=== PATIENT | female | born 1985 | race Caucasian/White ===

== ENCOUNTER 2019-04-17 18:18 | Emergency (ER) | payer OTHER ==
[2019-04-17 18:55] VITALS: BP 134/88
--- NOTE | 2019-04-17 19:20 | UC ---
Headache HPI - HPI Summary HPI Summary: 33-year-old woman comes in with a chief complaint of right-sided headache right eye blurred vision and dizziness. These symptoms started a couple of hours ago. Headaches a 6 out of 10 on the right side of her head. The right eye vision feels blurred. She also has mild photophobia. When she moves her head or eyes she gets a spinning dizziness. No complaint of any upper respiratory tract infection symptoms. No complaint of ear pain. No history of migraines denies any change in speech or weakness or numbness. Patient does have chronic right shoulder pain which sometimes spreads to the right neck however she's never had right sided headache with blurred vision and dizziness. Not on oral control pill. - History Of Current Complaint Chief Complaint: UCDizziness Stated Complaint: SHOULDER, NECK AND HEAD PAIN WITH DIZZINESS Time Seen by Provider: 04/17/19 18:48 Hx Last Menstrual Period: IUD Pain Intensity: 5 - Allergies/Home Medications Allergies/Adverse Reactions: Allergies Allergy/AdvReac Type Severity Reaction Status Date / Time Sulfa (Sulfonamide Allergy Intermediate Rash Verified 04/17/19 18:42 Antibiotics) Home Medications: Home Medications Propranolol TAB* [Inderal TAB*] 1 tab PO DAILY 04/17/19 [History Confirmed 04/17] Sertraline* [Zoloft*] 1 tab PO DAILY 04/17/19 [History Confirmed 04/17/19] PMH/Surg Hx/FS Hx/Imm Hx Previously Healthy: Yes - Surgical History Surgical History: None - Family History Known Family History: Positive: Non-Contributory - Social History Alcohol Use: Rare Substance Use Type: None Smoking Status (MU): Never Smoked Tobacco Review of Systems All Other Systems Reviewed And Are Negative: Yes Constitutional: Positive: Other - SEE HPI Skin: Positive: Negative Eyes: Positive: Blurred Vision ENT: Positive: Negative Respiratory: Positive: Negative Cardiovascular: Positive: Negative Gastrointestinal: Positive: Negative Motor: Positive: Negative Neurovascular: Positive: Negative Musculoskeletal: Positive: Other: - SEE HPI Neurological: Positive: Headache Psychological: Positive: Negative Is Patient Immunocompromised?: No Physical Exam Triage Information Reviewed: Yes Appearance: Well-Appearing, Well-Nourished, Pain Distress - MILD Vital Signs: Initial Vital Signs Temp 98.7 F 04/17/19 18:48 Pulse 57 04/17/19 18:48 Resp 16 04/17/19 18:48 BP 134/88 04/17/19 18:48 Pulse Ox 100 04/17/19 18:48 Vital Signs Reviewed: Yes Eyes: Positive: Conjunctiva Clear, Other: - PERRLA EOMI. No nystagmus appreciated on exam. Eye movement does cause dizziness per patient. No visual field deficit. Patient reports right eye vision is blurred. ENT: Positive: TMs normal. Negative: Nasal drainage Neck: Positive: Supple Respiratory: Positive: Lungs clear, Normal breath sounds, No respiratory distress Cardiovascular: Positive: RRR Musculoskeletal: Positive: Strength Intact, ROM Intact Neurological: Positive: Alert, Muscle Tone Normal, Other: - There is no facial droop. Speech is mildly erratic. However the patient's partner states is the way she normally talks. Arms and legs have full range of motion full-strength. Psychological: Positive: Age Appropriate Behavior Skin Exam: Normal Diagnostics - EKG Cardiac Rate: Bradycardia - AT 1838 Cardiac Rhythm: Sinus: Normal - 45BPM Ectopy: None ST Segment: Normal Headache Course/Dx - Course Course Of Treatment: I discussed the EKG with the patient and her partner. 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 She reports that she's been told she hasn't athlete's heart in the past but is not specifically aware of a slow heart rate. This is a new onset headache with blurred vision dizziness and photophobia. To me the patient's speech was pattern somewhat irregularly however the patient and her partner said this is not different than normal. Because of the new onset headache with visual symptoms dizziness and potential speech changes I recommended further evaluation in the emergency department. Patient prefers go by POV. - Differential Dx/Diagnosis Provider Diagnosis: Right-sided headache, Blurred vision, right eye, Dizziness Discharge ED - Sign-Out/Discharge Documenting (check all that apply): Patient Departure All imaging exams completed and their final reports reviewed: No Studies - Discharge Plan Condition: Stable Disposition: HOME-RECOMMEND TO ED Referrals: [facility] [place] [facility] [Outside] Additional Instructions: GO DIRECTLY TO THE EMERGENCY DEPARTMENT FOR FURTHER EVALUATION OF YOUR RIGHT SIDED HEADACHE, BLURRED VISION AND DIZZINESS. - Billing Disposition and Condition Condition: STABLE Disposition: Home-Recommend to ED
== END 2019-04-17 19:23 | disposition home health service (06) ==
LOC: UCEAST 18:18
DX: R51 Headache (principal); H53.8 Other visual disturbances; R42 Dizziness and giddiness; R00.1 Bradycardia, unspecified; Z88.2 Allergy status to sulfonamides
CPT/HCPCS: 93005; 99202; G0463

== ENCOUNTER 2019-04-17 19:56 | Emergency (ER) | payer OTHER ==
[2019-04-17] MEDS: diPHENhydraMINE IV* 50 MG/ML 1 ml VIAL (BENADRYL) IV ONE (21:47)
[2019-04-17] MEDS: Ondansetron INJ* 2 MG/ML VIAL IV ONE (21:47)
[2019-04-17] MEDS: Ketorolac INJ* 30 MG/ML 1 ML VIAL IV PUSH ONE (21:47)
[2019-04-17 22:09] LABS: ABS Eosinophils 0.1 10^3/ul (0-0.6); ABS Lymphocytes 3.6 10^3/ul (1.0-4.8); ABS Monocytes 0.5 10^3/ul (0-0.8); ABS Neutrophils 5.6 10^3/ul (1.5-7.7); Eosinophil % 1.4 %; Hematocrit 42 % (35-47); Hemoglobin 13.8 g/dL (12.0-16.0); Lymphocyte % 36.4 %; Mean Corpuscular HGB Conc 33 g/dL (31-36); Mean Corpuscular Hemoglobin 29 pg (27-31); Mean Corpuscular Volume 89 fL (80-97); Nucleated Red Blood Cells % 0.1; Platelet Count 317 10^3/uL (150-450); Red Blood Count 4.75 10^6 /uL (3.70-4.87); Red Cell Distribution Width 13 % (10-15); White Blood Count 9.8 10^3/uL (3.5-10.8)
[2019-04-17 22:22] LABS: ALT 17 U/L (7-52); AST 18 U/L (13-39); Albumin 4.7 g/dL (3.2-5.2); Albumin/Globulin Ratio 1.7 (1-3); Alkaline Phosphatase 62 U/L (34-104); Anion Gap 9 mmol/L (2-11); BUN/Creatinine Ratio 14.3 (8-20); Blood Urea Nitrogen 11 mg/dL (6-24); C Reactive Protein 1.55 mg/L (<8.01); CO2 Carbon Dioxide 24 mmol/L (22-32); Calcium 9.3 mg/dL (8.6-10.3); Chloride 108 mmol/L (101-111); EGFR African American 105.1 (>60); EGFR Non-African American 86.9 (>60); Globulin 2.8 g/dL (2-4); Glucose 78 mg/dL (70-100); Potassium 3.4 mmol/L (3.5-5.0); Sodium 141 mmol/L (135-145); Total Protein 7.5 g/dL (6.4-8.9)
[2019-04-17 22:29] LABS: HCG Pregnancy < 0.60 mIU/mL
--- NOTE | 2019-04-17 23:06 | ED ---
Headache - HPI Summary HPI Summary: 33 year old female presents with headache today. States that headache started 3 hours ago. It is not the worst headache of her life. She felt with headache she's had some photophobia and dizzy. She has history of right shoulder issues that is not new. She admits to numbness and tingling down her right arm that is not new. She states that she believes this is due to her right shoulder pain. She denies any history of migraines. No family history of migraines or aneurysms. No decreasing hearing. No tearing. no fevers. no neck stiffness. - History Of Current Complaint Chief Complaint: EDHeadache Stated Complaint: HEAD,NECK PAIN,BLURRY VISION RIGHT EYE PER PT Time Seen by Provider: 04/17/19 21:24 Hx Last Menstrual Period: IUD - Allergies/Home Medications Allergies/Adverse Reactions: Allergies Allergy/AdvReac Type Severity Reaction Status Date / Time Sulfa (Sulfonamide Allergy Intermediate Rash Verified 04/17/19 20:03 Antibiotics) Home Medications: Home Medications Propranolol TAB* [Inderal TAB*] 10 mg PO DAILY 04/17/19 [History Confirmed 04/17] Sertraline* [Zoloft*] 25 mg PO DAILY 04/17/19 [History Confirmed 04/17/19] PMH/Surg Hx/FS Hx/Imm Hx Endocrine/Hematology History: Denies: Hx Anticoagulant Therapy Respiratory History: Denies: Hx Asthma Infectious Disease History: No Infectious Disease History: Denies: Traveled Outside the [place] in Last 30 Days - Family History Known Family History: Positive: Non-Contributory - Social History Alcohol Use: Rare Substance Use Type: Reports: Marijuana Smoking Status (MU): Never Smoked Tobacco Review of Systems Negative: Fever Positive: Photophobia Negative: Chest Pain Negative: Shortness Of Breath Positive: Myalgia - right shoulder pain Positive: Headache All Other Systems Reviewed And Are Negative: Yes Physical Exam Triage Information Reviewed: Yes Vital Signs On Initial Exam: Initial Vitals Temp Pulse Resp BP Pulse Ox 99.5 F 50 16 108/76 99 04/17/19 19:58 04/17/19 19:58 04/17/19 19:58 04/17/19 19:58 04/17/19 19:58 Vital Signs Reviewed: Yes Appearance: Positive: Well-Appearing Skin: Positive: Warm, Dry Head/Face: Positive: Normal Head/Face Inspection Eyes: Positive: Normal, EOMI, ALICIA, Conjunctiva Clear ENT: Positive: Normal ENT inspection, Pharynx normal, TMs normal Neck: Positive: Other: - full ROM neck, tenderness right side neck, no midline tenderness Respiratory/Lung Sounds: Positive: Clear to Auscultation, Breath Sounds Present Cardiovascular: Positive: Normal, RRR Musculoskeletal: Positive: Strength/ROM Intact - right shoulder, Other - good pulses Neurological: Positive: Sensory/Motor Intact, Alert, Oriented to Person Place, Time, CN Intact II-III, Finger to Nose, Facial Symmetry, Speech Normal. Negative: Pronator Drift Present Psychiatric: Positive: Normal Procedures - Sedation Patient Received Moderate/Deep Sedation with Procedure: No Diagnostics - Vital Signs Vital Signs Temp Pulse Resp BP Pulse Ox 04/17/19 22:00 43 15 100 04/17/19 21:32 49 14 115/72 98 04/17/19 21:17 47 100 04/17/19 21:01 52 122/78 100 04/17/19 19:58 99.5 F 50 16 108/76 99 - Laboratory Lab Results: Lab Results 04/17/19 04/17/19 Range/Units 21:59 21:59 WBC 9.8 (3.5-10.8) 10^3/uL RBC 4.75 (3.70-4.87) 10^6 /uL Hgb 13.8 (12.0-16.0) g/dL Hct 42 (35-47) % MCV 89 (80-97) fL MCH 29 (27-31) pg MCHC 33 (31-36) g/dL RDW 13 (10-15) % Plt Count 317 (150-450) 10^3/uL MPV 9.0 (7.4-10.4) fL Neut % (Auto) 57.1 % Lymph % (Auto) 36.4 % Dixon % (Auto) 4.7 % Eos % (Auto) 1.4 % Baso % (Auto) 0.4 % Absolute Neuts (auto) 5.6 (1.5-7.7) 10^3/ul Absolute Lymphs (auto) 3.6 (1.0-4.8) 10^3/ul Absolute Monos (auto) 0.5 (0-0.8) 10^3/ul Absolute Eos (auto) 0.1 (0-0.6) 10^3/ul Absolute Basos (auto) 0.0 (0-0.2) 10^3/ul Absolute Nucleated RBC 0.0 10^3/ul Nucleated RBC % 0.1 Sodium 141 (135-145) mmol/L Potassium 3.4 L (3.5-5.0) mmol/L Chloride 108 (101-111) mmol/L Carbon Dioxide 24 (22-32) mmol/L Anion Gap 9 (2-11) mmol/L BUN 11 (6-24) mg/dL Creatinine 0.77 (0.51-0.95) mg/dL Est GFR ( Amer) 105.1 (>60) Est GFR (Non-Af Amer) 86.9 (>60) BUN/Creatinine Ratio 14.3 (8-20) Glucose 78 (70-100) mg/dL Calcium 9.3 (8.6-10.3) mg/dL Total Bilirubin 0.30 (0.2-1.0) mg/dL AST 18 (13-39) U/L ALT 17 (7-52) U/L Alkaline Phosphatase 62 (34-104) U/L C-Reactive Protein 1.55 (<8.01) mg/L Total Protein 7.5 (6.4-8.9) g/dL Albumin 4.7 (3.2-5.2) g/dL Globulin 2.8 (2-4) g/dL Albumin/Globulin Ratio 1.7 (1-3) Beta HCG, Quant < 0.60 mIU/mL Result Diagrams: 04/17/19 21:59 04/17/19 21:59 Lab Statement: Any lab studies that have been ordered have been reviewed, and results considered in the medical decision making process. - CT brain CT Interpretation Completed By: Radiologist Summary of CT Findings: IMPRESSION: No acute intracranial abnormality. Re-Evaluation - Re-Evaluation First Eval Re-Evaluation Time: 23:04 Change: Improved Comment: feleing better Headache Course/Dx - Course Course Of Treatment: 33 year old female presents with headache today. States that headache started 3 hours ago. It is not the worst headache of her life. She felt with headache she's had some photophobia and dizzy. She has history of right shoulder issues that is not new. She admits to numbness and tingling down her right arm that is not new. She states that she believes this is due to her right shoulder pain. She denies any history of migraines. No family history of migraines or aneurysms. No decreasing hearing. No tearing. On exam has normal neuro exam. crp normal. Got CT of the brain with new onset headache. CT was done 4 hours post onset headache so is vert sensitive. CT brain normal. Patient was given migraine cocktail and feeling better. will discharge to follow up primary. Told to continue follow-up with neurology. Patient understands agrees with plan. - Diagnoses Differential Diagnosis/HQI/PQRI: Migraine, Subarachnoid Hemorrhage, Tension Headache Provider Diagnoses: Right shoulder pain, Headache Discharge ED - Sign-Out/Discharge Documenting (check all that apply): Patient Departure - Discharge Plan Condition: Good Disposition: HOME Patient Education Materials: General Headache (ED) Referrals: [facility] [place] [facility] [Outside] Minnie Rodriguez MD [Medical Doctor] - Additional Instructions: establish care with primary to follow up Take Tylenol or ibuprofen every 6 hours for pain follow up with neurology if headache continues Return to ED if develop any new or worsening symptoms - Billing Disposition and Condition Condition: GOOD Disposition: Home
[2019-04-17 23:08] VITALS: BP 132/79
== END 2019-04-17 23:13 | disposition home or self-care (01) ==
LOC: ED 19:56
DX: R51 Headache (principal); M25.511 Pain in right shoulder; Z79.899 Other long term (current) drug therapy; Z88.2 Allergy status to sulfonamides
CPT/HCPCS: 36415; 70450; 80053; 84702; 85025; 86140; 96374; 96375; 99282; J1200; J1885; J2405